=== PATIENT | male | born 1985 | race Caucasian/White ===

== ENCOUNTER 2017-03-13 09:12 | Emergency (ER) | payer MEDICAID ==
[~2017-03-13 09:12] MED LIST: CEPHALEXIN 500 MG CAP PO SCH; SULFAMETHOX/TMP 800/160 MG 1 TAB PO SCH
[2017-03-13 09:26] VITALS: RESP 18
[2017-03-13 09:51] VITALS: BP 147/92; PULSE 96; TEMP 97.9; O2SAT 95
[2017-03-13] MEDS ORDERED: SULFAMETHOX/TMP 800/160 MG 1 TAB PO ONE (10:04)
[2017-03-13] MEDS ORDERED: CEPHALEXIN 500 MG CAP PO ONE (10:04)
[2017-03-13] MEDS ORDERED: IBUPROFEN 600 MG TAB PO ONE (10:06)
--- NOTE | 2017-03-13 10:07 | EDPHY ---
General Narrative: CHIEF COMPLAINT: "lung infection" HISTORY OF PRESENT ILLNESS: Patient complains of "I have a lung infection." He says he has left-sided lung pain. It is worse when lying on his side and when coughing. He says it is not "causing me to cough any more than normal, but it's painful." No fever. No difficulty breathing. This is been present for nearly a week. No improving factors. He also has a secondary complaint of right buttock "infection." This has been present for 4 days but finally came to a head yesterday. It is now spontaneously draining purulent material. He has not attempted to open this. He has not attempted any topical medications. He has had these in the past. No other associated complaints or modifying factors. REVIEW OF SYSTEMS: Ten systems reviewed and are negative unless otherwise noted in the HPI PCP: None SPECIALISTS: None PAST MEDICAL HISTORY: Denies PAST SURGICAL HISTORY: Denies SOCIAL HISTORY: Endorses tobacco and "recreational drug use." Denies IV drug use FAMILY HISTORY: Noncontributory EXAMINATION General Appearance: Alert, no distress, unkempt Head: normocephalic, atraumatic Eyes: Pupils equal and round, no conjunctival pallor or injection ENT, Mouth: Mucous membranes moist. Airway patent with poor dentition Neck: Normal inspection, supple, non-tender Respiratory: Lungs are clear to auscultation. No wheezing, rhonchi or crackles. No crepitus or paradoxical movements of the chest Cardiovascular: Regular rate and rhythm. No murmur Gastrointestinal: Abdomen is soft and nontender Back: non-tender, no bony abnormalities Neurological: GCS 15. A&O, nonfocal, normal gait Skin: Warm and dry. Multiple areas of excoriation. No petechiae or purpura. There is a right buttock area of central erythema and induration. There is spontaneous drainage from this. There is no fluctuance or warmth. Extremities: Nontender, no pedal edema. Symmetric range of motion Psychiatric: Mood and affect normal DIFFERENTIAL DIAGNOSES: Including but not limited to acute bronchitis, community-acquired pneumonia, influenza, viral bronchitis, lower respiratory infection, cellulitis, abscess, folliculitis, vector bite MDM: 10:05 a.m. Complains of "lung infection" on the left side with a right buttock abscess. The abscess is spontaneously draining. It is mostly indurated with no fluctuance. I feel with the patient's hygiene and with the lack of fluctuance, incision and drainages ill-advised. We discussed warm compresses and how to encourage the draining that started present. We discussed Bactrim and Keflex, which I have initiated here in the emergency department. He also has a chest x- ray pending to rule out pneumonia. He is in no acute distress. 10:15 a.m. Chest x-ray has been read as multiple patchy infiltrate to the left lower lobe. Recommend follow-up after treatment. Treatment started here with Bactrim and Keflex for the wound should be sufficient for treatment of this. I will place him on an albuterol inhaler and ensure that he has follow [facility] for monitoring of this. At this time he is oxygenating well on room air. I do not feel he requires inpatient stay for this. He is in no acute distress. 10:25 a.m. Notified by RN that the patient became upset that I was not ordering narcotics. She informed me that he got up and walked out of the room and left. I tried to catch the patient but he was walking across a parking lot and would not returned when I tried to get him to stay. This when he is left without treatment completed. He was in no acute distress and capable making this decision. We will attempt to contact him. I notified case management and they will attempt to call the phone number on file. 11:00 a.m. Unsuccessful attempts to contact the patient. Medication is awaiting the patient should he change his mind to return to the emergency department. Vital signs were stable prior to him choosing to leave without treatment complete. SUPERVISION: This patient was independently evaluated without direct involvement of or examination by the attending physician. - Diagnostics Imaging Results: Imaging Impressions Chest X-Ray 03/13/17 10:00 Impression: Multifocal opacities in left lower lobe, possible pneumonia. Recommend radiographic follow-up after treatment.. - History Smoking Status: Current every day smoker - Objective Vital Signs: Initial Vital Signs Temperature (C) 98.1 F 03/13/17 09:23 Heart Rate 88 03/13/17 09:23 Respiratory Rate 18 03/13/17 09:23 Blood Pressure 140/70 H 03/13/17 09:23 O2 Sat (%) 99 03/13/17 09:23 O2 Delivery Mode Room Air Allergies/Adverse Reactions: High doses of psych meds Allergy (Unknown, Uncoded 03/13/17 09:22) Home Medications: Medication Instructions Recorded Cephalexin [Keflex (*)] 500 mg PO QID #40 cap 03/13/17 Sulfamethox/Tmp 800/160 mg 1 tab PO BID 10 Days tab 03/13/17 [Bactrim Ds] levOFLOXACIN [levAQUIN (*)] 750 mg PO DAILY #5 tab 03/13/17 Medications Given: Discontinued Medications Cephalexin HCl (Keflex) 500 mg PO EDNOW ONE PRN Reason: Protocol Stop: 03/13/17 10:05 Last Admin: 03/13/17 10:22 Dose: 500 mg Ibuprofen (Motrin) 600 mg PO EDNOW ONE Stop: 03/13/17 10:07 Last Admin: 03/13/17 10:23 Dose: 600 mg Trimethoprim/Sulfamethoxazole (Bactrim Ds) 1 ea PO EDNOW ONE PRN Reason: Protocol Stop: 03/13/17 10:05 Last Admin: 03/13/17 10:22 Dose: 1 ea Departure - Departure Disposition: Against Medical Advice Clinical Impression: Abscess of buttock, right, Homelessness Acute bronchitis Qualifiers: Bronchitis organism: unspecified organism Qualified Code(s): J20.9 - Acute bronchitis, unspecified Community acquired pneumonia Qualifiers: Laterality: left Lung location: lower lobe of lung Qualified Code(s): J18.1 - Lobar pneumonia, unspecified organism Condition: Good Instructions: Community Acquired Pneumonia (ED), Acute Bronchitis (ED) Referrals: [facility],. [Clinic] - As per Instructions Prescriptions: Cephalexin [Keflex (*)] 500 mg PO QID #40 cap levOFLOXACIN [levAQUIN (*)] 750 mg PO DAILY #5 tab Sulfamethox/Tmp 800/160 mg [Bactrim Ds] 1 tab PO BID 10 Days tab
[2017-03-13] MEDS ORDERED: ALBUTEROL INH PREPACK MDI TAKEHOME ONE (10:28)
--- NOTE | 2017-03-13 11:51 | ASMTCMCOM ---
CM Note CM Note Notes: Requested prescriptions from [facility] to [facility] but patient left AMA before they were filled. I attempted to contact patient with phone number on his demographics but message states "The person you are calling cannot accept calls at tis time". I have attempted to several times, each time receiving this message. Date Signed: 03/13/2017 11:50 AM Electronically Signed By:Arabella Santos RN
[2017-03-13] MEDS ORDERED: MUPIROCIN 2% 22 GM OINT TP SCH (16:00)
== END 2017-03-13 10:34 | disposition left against medical advice (07) ==
DX: J20.9 Acute bronchitis, unspecified (principal); J18.1 Lobar pneumonia, unspecified organism; L02.31 Cutaneous abscess of buttock; F17.200 Nicotine dependence, unspecified, uncomplicated; Z59.0 Homelessness